=== PATIENT | male | born 1985 | race Caucasian/White ===

== ENCOUNTER 2016-04-12 17:55 | Emergency (ER) | payer OTHER ==
[~2016-04-12] VITALS: Ht 193 cm; Wt 133.8 kg
[~2016-04-12 17:55] MED LIST: ACCUNEB0.63 MG/3 IH; ALBUTEROL SULF8.5 GM IH; ALBUTEROL17 GM IH; AMLODIPINE BESY10 MG PO; BACTRIM,SEPT1 TABLET PO; CLINDAMYCIN HC300 MG PO; FLEXERIL10 MG PO; KEFLEX500 MG PO; KLONOPIN0.5 M1 PO; LEVAQUIN500 MG PO; LISINOPRIL-HCTZ 20-2; MEDROL DOSEPAK4 MG PO; METHADONE10 MG PO; METHADOSE10 MG PO; MOTRIN600 MG PO; Methadone HCl PO; NAPROSYN500 MG PO; NOHOMEMEDS; OXYCODONE5 MG; PREDNISONE20 MG PO; TAMIFLU75 MG PO; VENTOLIN HFA18 GM IH; ZESTRIL,PRINIVI10 MG PO; ZESTRIL,PRINIVI20 MG PO; ZITHROMAX Z-PA250 MG PO; Zithromax PO; methadone PO; oxyCODONE PO
[2016-04-12 17:57] VITALS: BP 118/71
== END 2016-04-12 21:25 | disposition left against medical advice (07) ==
LOC: EME 17:55
DX: R07.9 Chest pain, unspecified (principal); Z53.21 Procedure and treatment not carried out due to patient leaving prior to being seen by health care provider
CPT/HCPCS: 93005

== ENCOUNTER 2016-10-28 22:22 | Emergency (ER) | payer OTHER ==
[2016-10-28] MEDS ORDERED: MEDROL DOSEPAK4 MG PO (23:37)
[2016-10-28] MEDS ORDERED: ATARAX,VISTARIL50 MG PO (23:37)
[2016-10-28 23:50] VITALS: BP 117/92
== END 2016-10-28 23:51 | disposition home or self-care (01) ==
LOC: EME 22:22
DX: L25.9 Unspecified contact dermatitis, unspecified cause (principal); J45.909 Unspecified asthma, uncomplicated
CPT/HCPCS: 99281; 99283; J7512; Q0177

== ENCOUNTER 2016-11-09 19:53 | Emergency (ER) | payer OTHER ==
[~2016-11-09] VITALS: Ht 182.9 cm; Wt 128.8 kg
[~2016-11-09 19:53] MED LIST changes: +ATARAX,VISTARIL50 MG PO
[2016-11-09] MEDS ORDERED: MOTRIN800 MG PO (21:02)
[2016-11-09] MEDS ORDERED: KENALOG,ARISTOC80 GM TP (21:02)
[2016-11-09] MEDS ORDERED: KEFLEX500 MG PO (21:02)
[2016-11-09 21:18] VITALS: BP 120/65
== END 2016-11-09 21:19 | disposition home or self-care (01) ==
LOC: EME 19:53
DX: S60.222A Contusion of left hand, initial encounter (principal); W22.8XXA Striking against or struck by other objects, initial encounter; L73.9 Follicular disorder, unspecified; J45.909 Unspecified asthma, uncomplicated
CPT/HCPCS: 73130; 99281; 99284

== ENCOUNTER 2016-12-21 04:52 | Emergency (ER) | payer OTHER ==
[~2016-12-21] VITALS: Ht 182.9 cm; Wt 128.0 kg
[~2016-12-21 04:52] MED LIST changes: +KENALOG,ARISTOC80 GM TP; +MOTRIN800 MG PO
[2016-12-21] MEDS ORDERED: ZITHROMAX Z-PA250 MG PO (05:52)
[2016-12-21 06:02] LABS: INFLUENZA A VIRAL ANTIGEN NEGATIVE; INFLUENZA B VIRAL ANTIGEN NEGATIVE
[2016-12-21 06:29] VITALS: BP 125/95
== END 2016-12-21 06:31 | disposition home or self-care (01) ==
LOC: EME 04:52
PROVIDERS: Emergency Medicine
DX: J20.9 Acute bronchitis, unspecified (principal); J06.9 Acute upper respiratory infection, unspecified; J45.909 Unspecified asthma, uncomplicated; I34.1 Nonrheumatic mitral (valve) prolapse; G89.29 Other chronic pain; Z88.6 Allergy status to analgesic agent; Z88.0 Allergy status to penicillin
CPT/HCPCS: 71020; 87502; 87651 90; 99281; 99283

== ENCOUNTER 2017-11-04 13:52 | Emergency (ER) | payer OTHER ==
[~2017-11-04] VITALS: Ht 182.9 cm; Wt 121.6 kg
[2017-11-04 15:53] LABS: HEMATOCRIT 43.8 % (38.0-50.0); HEMOGLOBIN 15.2 G/DL (12.5-16.6); MCH 29.5 PG (29.0-34.0); MCHC 34.7 G/DL (30.0-36.0); MCV 84.9 FL (86-99); PLATELET COUNT 212 K/uL (156-360); RBC DIS.WIDTH-CV 11.7 % (11.8-14.6); RBC DIS.WIDTH-SD 35.8 % (39-53); RED BLOOD COUNT 5.16 M/uL (4.00-5.50); WHITE BLOOD COUNT 9.6 K/uL (4.1-10.2)
[2017-11-04 16:04] LABS: CHLORIDE 102 mEq/L (99-109); POTASSIUM 4.2 mEq/L (3.7-5.4); SODIUM 137 mEq/L (136-147)
[2017-11-04 16:06] LABS: GLUCOSE 107 mg/dL (70-99)
[2017-11-04 16:10] LABS: CREATININE 0.8 mg/dL (0.6-1.3); GFR ESTIMATE (CALCULATED) > 59 mL/min/ (58.99-99999)
[2017-11-04 16:11] LABS: UREA NITROGEN (BUN) 12 mg/dL (9-23)
[2017-11-04 17:06] VITALS: BP 131/87
== END 2017-11-04 17:07 | disposition home or self-care (01) ==
LOC: EME 13:52
PROVIDERS: Physician Assistant
DX: M79.672 Pain in left foot (principal); R26.2 Difficulty in walking, not elsewhere classified; R60.0 Localized edema
CPT/HCPCS: 80048; 85027; 93971; 99281; 99283